=== PATIENT | female | born 1955 | race Caucasian/White ===

== ENCOUNTER 2020-10-11 17:02 | Inpatient (IN) | payer MEDICARE, SELFPAY ==
[2020-10-11] VITALS (10 sets, daily range): BP systolic 97–146; BP diastolic 64–91; PULSE 83–98; RESP 15–18; TEMP 36.6; O2SAT 95–100; BMI 40.6
--- NOTE | ~2020-10-11 | XR_ITS ---
EXAMINATION: XR chest 2V 10/11/2020 17:52 INDICATION: Chest pain, nausea and shortness of breath PROCEDURE: 2 view chest COMPARISON: No prior studies for comparison. FINDINGS: The lungs are clear. The cardiomediastinal silhouette is within normal limits. There are no pleural effusions. There is no pneumothorax suspected. IMPRESSION: 1: NO ACUTE CARDIOPULMONARY DISEASE. Reviewed, dictated and finalized at location A.
--- NOTE | 2020-10-11 17:04 | ECG_ITS ---
Measurements Intervals [place] Rate: 93 P: 21 ME: 166 QRS: 18 QRSD: 72 T: 131 QT: 353 QTc: 439 Interpretive Statements SINUS RHYTHM CANNOT RULE OUT SEPTAL INFARCT, AGE INDETERMINATE T WAVE ABNORMALITY IN HIGH LATERAL LEADS- CONSIDER ISCHEMIA BASELINE WANDER- II, III, AVR, AVL, AVF, V1, V6 ABNORMAL ECG Electronically Signed On 10-11-2020 19:01:11 CDT by Juan F Junior D.O.
[2020-10-11 17:52] LABS: Basophils Percent Auto 0.3 % (0.2-1.2); Eosinophils Absolute Auto 0.2 K/mm3 (0-0.3); Eosinophils Percent Auto 1.1 % (0-4.4); Hematocrit 44.8 % (37.0-47.0); Hemoglobin 14.7 g/dL (12.0-15.0); Immature Granulocyte Absolute 0.04 K/mm3 (0.00-0.031); Immature Granulocyte Percent A 0.3 % (0-0.5); Lymphocytes Percent Auto 20.6 % (18.3-44.2); Mean Corpuscular HGB Conc 32.8 g/dl (32-36); Mean Corpuscular Hemoglobin 30.4 pg (26-34); Mean Corpuscular Volume 92.6 fl (80-100); Mean Platelet Volume 9.3 fl (7.4-10.4); Monocytes Absolute Auto 1.3 K/mm3 (0.1-0.6); Monocytes Percent Auto 9.2 % (2.6-8.5); Neutrophils Absolute Auto 9.3 K/mm3 (1.3-6.7); Neutrophils Percent Auto 68.5 % (45.5-73.1); Platelet Count Result 305 k/mm3 (150-375); Red Blood Count 4.84 M/mm3 (4.2-5.4); Red Cell Distribution Width 13.6 % (11.5-14.5); White Blood Count 13.6 K/mm3 (4.5-10.0)
[2020-10-11 18:02] LABS: INR 0.9; Prothrombin Time 12.4 Seconds (11.1-14.7)
[2020-10-11 18:04] LABS: Anion Gap 8 mmol/L (8-16); Blood Urea Nitrogen 13 mg/dL (7-17); Calcium 9.8 mg/dL (8.4-10.2); Carbon Dioxide 29 mmol/L (22-30); Chloride 103 mmol/L (98-107); Estimated CRCL calculation 79 ml/min; Estimated Glomerular Filt Rate > 60; Glucose 114 mg/dL (65-105); Partial Thromboplastin Time 23.6 SECONDS (22.3-36.8); Potassium 4.2 mmol/L (3.4-5.0); Sodium 140 mmol/L (137-145)
[2020-10-11] MEDS: ASPIRIN 81 MG CHEWABLE TABLET 324 MG PO (18:59)
[2020-10-11] MEDS: HEPARIN SODIUM 5,000 UNITS/ML VIAL 4000 UNITS IV PUSH (20:02)
[2020-10-11] MEDS: HEPARIN SOD/D5W 100 UNITS/ML 25,000 UNITS/250 ML BAG 8 UNITS IV CONT (20:04)
[2020-10-11] MEDS: MORPHINE SULFATE (*CRX) 4 MG/ML INJ IV PUSH (20:05)
--- NOTE | 2020-10-11 20:20 | ED.CHESTPAIN ---
HPI - Chest Pain General Chief Complaint: Chest Pain Stated Complaint: chest pain since sunday Time Seen by Provider: 10/11/20 18:59 History of Present Illness HPI narrative: Patient is a 65-year-old female who presents ER with chest pain or shortness of breath. Patient reports 2 days ago she began having pain in the middle of her back that radiated up into her neck and down her arms. It was sudden onset in the evening. Its persisted through the weekend. Today she began having central chest pain that is 5/10. No radiation. She has extreme exertional fatigue and dyspnea beginning today. Cannot walk more than 20 feet. Denies fevers or chills or sweats. No previous heart disease. Reports her father of an MO in his 50s and her brother had an MO in his 30s. Related Data Home Medications Medication Instructions Recorded Confirmed No Home Medications 10/11/20 10/11/20 Allergies Allergy/AdvReac Type Severity Reaction Status Date / Time adhesive tape Allergy Rash Verified 10/11/20 18:54 Review of Systems Review of Systems: All systems reviewed & are unremarkable except as noted in HPI and below Constitutional: Constitutional: Denies chills, Denies fever(s) and Denies weakness Cardiovascular: Cardiovascular: Reports chest pain, Denies rapid heart rate and Reports radiating jaw, neck or arm pain Respiratory: Respiratory: Reports dyspnea Comments: Dyspnea on exertion Gastrointestinal: Gastrointestinal: Denies abdominal pain, Denies nausea and Denies vomiting Musculoskeletal: Musculoskeletal: Reports back pain, Denies arthralgias, Denies joint swelling and Denies muscle cramps PMFSH Past Medical History Medical History (Updated 10/12/20 @ 04:58 by Vinicio Trimble MD) Healthy female adult Surgical History Surgical History (Updated 10/12/20 @ 04:46 by Vinicio Trimble MD) No history of previous surgery Family History Family History (Updated 10/11/20 @ 22:42 by Brien Juarez RN) Father Acute myocardial infarction Sibling Acute myocardial infarction Social History Social History Smoking status: Never smoker Alcohol intake: never Substance use: never Gender identity (if verbalized by the patient): Female Spiritual care concerns: No Exam Narrative: Exam Narrative: GENERAL: Well-appearing, well-nourished, and in no acute distress. HEAD: Normocephalic, atraumatic. ENT: Mucous membranes moist. CHEST: Clear to auscultation. No respiratory distress. HEART: Regular rate and rhythm. Normal peripheral pulses. ABDOMEN: Soft, nontender, nondistended. EXTREMITIES: Normal range of motion. Normal strength. SKIN: Warm, dry, no rash. NEURO: Alert and oriented x3. PSYCH: Normal mood and affect. Course Reevaluation(s) Reevaluation #1: Accepted by Dr. Hess, would like nitro drip, pt already on heparin drip. Discussed with Dr. Lazo who has accepted to the ICU. NPO at midnight. Date: 10/11/20 Time: 20:22 Vital Signs Vital signs: Vital Signs Temperature 98 F 10/11/20 17:39 Pulse Rate 94 10/11/20 17:39 Respiratory Rate 16 10/11/20 17:39 Blood Pressure 129/83 10/11/20 17:39 Pulse Oximetry 96 10/11/20 17:39 Temperature 98.3 F 10/12/20 04:00 Pulse Rate 75 10/12/20 04:00 Respiratory Rate 17 10/12/20 04:00 Blood Pressure 103/73 10/12/20 04:00 Pulse Oximetry 97 10/12/20 04:00 MDM - Chest Pain Lab Data Result diagrams: 10/12/20 02:06 10/12/20 02:06 Labs: Lab Results 10/11/20 10/11/20 10/11/20 Range/Units 17:44 17:44 17:44 WBC 13.6 H (4.5-10.0) K/mm3 RBC 4.84 (4.2-5.4) M/mm3 Hgb 14.7 (12.0-15.0) g/dL Hct 44.8 (37.0-47.0) % MCV 92.6 (80-100) fl MCH 30.4 (26-34) pg MCHC 32.8 (32-36) g/dl RDW 13.6 (11.5-14.5) % Plt Count 305 (150-375) k/mm3 MPV 9.3 (7.4-10.4) fl Immature Gran % (Auto) 0.3 (0-0.5) % Neut % (Auto) 68.5 (45.5-73.1) % Lymph % (Auto) 20
[2020-10-11] MEDS: SODIUM CHLORIDE 0.9% IV 500 ML IV CONT (21:04)
--- NOTE | 2020-10-11 22:02 | ADMGEN ---
This patient, Kerri Espinosa, was admitted to Intensive Care Unit-8 on 10/11/20 at 2200. Patient/family oriented to hospital policies and general routines including ID bracelet, bed and alarms, visiting hours, pain management, procedures, bathroom and other care routines, personal items, smoking policy, room service/diet, and visiting hours. Information on how to activate the Rapid Response Team has been discussed. Patient/Family are encouraged to report perceived risks to care and to ask questions if they do not understand what they are told or what they should do.
[2020-10-11] MEDS: NITROGLYCERIN/D5W 200 MCG/ML 50 MG/250 ML BTL IV CONT (22:35)
--- NOTE | 2020-10-11 22:37 | PC.NURSE ---
Spoke with Dr. Hess. Does not want called with future troponins. Updated that nitro drip was started at 5mcg and chest pain is 1/10. Titrate for chest pain 2 or less. Continue to monitor.
[2020-10-12] VITALS (26 sets, daily range): BP systolic 88–120; BP diastolic 57–81; PULSE 68–108; RESP 14–20; TEMP 36.4–36.9; O2SAT 94–100
--- NOTE | 2020-10-12 | ECHO_ITS ---
Patient Info Name: Kerri Espinosa Age: 65 years : 1955 Gender: Female Ht: 60 in Wt: 208 lbs BSA: 2.05 m2 BP: 113 / 73 mmHg Heart Rhythm: Sinus Rhythm Technical Quality: Good Exam Date: 10/12/2020 1:30 PM Exam Location: [facility] Patient Status: Inpatient Admit Date: 10/11/2020 Staff Ordering Physician: Jorje Corbett MD Legal Aid: Juancarlos Mcdonald, VANE, RT Attending Provider: Edel Hess DO Exam Type: CA echo dop color flow w con Study Info Indications I50.9 - Heart failure, unspecified Complete two-dimensional, color flow and Doppler transthoracic echocardiogram is performed with contrast to opacify the left ventricle and to improve the deliniation of the left ventricle endocardial borders. Summary 1. Left ventricular systolic function is normal, estimated at 55-60%. 2. The anteroapical segment is akinetic. 3. Definity contrast shows no filling defect consistent with thrombus. 4. There is trace mitral valve regurgitation. Left Ventricle Left ventricular chamber dimension is normal. Left ventricular systolic function is normal, estimated at 55-60%. The left ventricular diastolic function is grade I diastolic dysfunction. The anteroapical segment is akinetic. Definity contrast shows no filling defect consistent with thrombus. Right Ventricle Right ventricular chamber dimension is normal. Left Atria Left atrial chamber dimension is normal. Right Atria Right atrial chamber dimension is normal. Aortic Valve The aortic valve is normal. Pulmonic Valve The pulmonic valve is not well visualized. Mitral Valve The mitral valve has normal leaflets. There is trace mitral valve regurgitation. Tricuspid Valve The tricuspid valve leaflets are normal. Pericardium/Pleural The pericardium appears normal. Aorta The aortic root size at the sinus of Valsalva is normal. Left Ventricular Outflow Tract Name Value Normal LVOT 2D LVOT Diameter 1.96 cm LVOT Doppler LVOT Peak Gradient 4 mmHg LVOT Mean Gradient 2 mmHg LVOT VTI 16.63 cm LVOT VTI/AV VTI Ratio 0.71 LVOT Stroke Volume 50.04 ml LVOT CO 4.17 l/min LVOT CI 2.03 L/min/m2 Mitral Valve Name Value Normal MV Doppler MV Decel Griggs 361.36 cm/s2 MV PHT 0 s MV Area (PHT) 2.99 cm2 4.00-5.00 MV Diastolic Function MV E Peak Velocity 91.81 cm/s MV A Peak Velocity 73.39 cm/s MV E/A 1.25 MV Decel Time
[2020-10-12 02:27] LABS: Basophils Percent Auto 0.3 % (0.2-1.2); Eosinophils Percent Auto 0.1 % (0-4.4); Hemoglobin 12.4 g/dL (12.0-15.0); Immature Granulocyte Absolute 0.06 K/mm3 (0.00-0.031); Immature Granulocyte Percent A 0.4 % (0-0.5); Lymphocytes Absolute Auto 2.99 K/mm3 (0.9-3.2); Lymphocytes Percent Auto 20.8 % (18.3-44.2); Mean Corpuscular HGB Conc 31.8 g/dl (32-36); Mean Corpuscular Hemoglobin 30.2 pg (26-34); Mean Corpuscular Volume 94.9 fl (80-100); Mean Platelet Volume 9.8 fl (7.4-10.4); Monocytes Absolute Auto 1.3 K/mm3 (0.1-0.6); Monocytes Percent Auto 8.9 % (2.6-8.5); Neutrophils Percent Auto 69.5 % (45.5-73.1); Platelet Count Result 223 k/mm3 (150-375); Red Blood Count 4.11 M/mm3 (4.2-5.4); Red Cell Distribution Width 13.7 % (11.5-14.5); White Blood Count 14.4 K/mm3 (4.5-10.0)
[2020-10-12 02:36] LABS: Anion Gap 8 mmol/L (8-16); Blood Urea Nitrogen 13 mg/dL (7-17); Calcium 9.1 mg/dL (8.4-10.2); Carbon Dioxide 25 mmol/L (22-30); Chloride 106 mmol/L (98-107); Estimated CRCL calculation 79 ml/min; Estimated Glomerular Filt Rate > 60; Glucose 137 mg/dL (65-105); Potassium 4.1 mmol/L (3.4-5.0); Sodium 139 mmol/L (137-145)
[2020-10-12 02:43] LABS: Partial Thromboplastin Time 46.1 SECONDS (22.3-36.8)
[2020-10-12] MEDS: HEPARIN SODIUM 5,000 UNITS/ML VIAL 4000 UNITS IV PUSH (02:54)
--- NOTE | 2020-10-12 08:22 | PM.IMHP ---
H&P: HPI History of Present Illness Date/Time: 10/12/20 08:22 DATE OF SERVICE: 10/12/2020 CHIEF COMPLAINT: chest pain for about 3 days HPI: 65-year-old female with no known prior cardiac history; history of questionable TIA/CVA. Patient states that she was in her usual state of health until about 3 days ago when she started having discomfort between her shoulder blades, which later moved to anterior chest in the substernal area with radiation to left inframammary area. She describes her pain as sharp sensation in the substernal area, which has been constant in last few days associated with shortness of breath, diaphoresis, dizziness. She denies any palpitations, syncope. Patient was brought to the hospital by her daughter. EKG on admission which I personally evaluated showed sinus rhythm, septal infarct age undetermined, ST-T abnormalities in the lateral leads suggestive of ischemia. Troponins are elevated, trending upwards, current peak troponin level 11.1. No acute findings on chest x-ray. Patient was initiated on IV nitroglycerin due to persistent chest discomfort, which has improved her symptoms. She was also initiated on unfractionated heparin in the ER. Patient gives vague history of TIA/CVA about 10 years ago, but does not recall the details and workup. She has not had any major motor deficits. Chief Complaint: Chest pain Review of Systems Review of Systems: Narrative: General: Negative for fever, chills, fatigue Psychological: Negative for anxiety, depression Ophthalmic: negative for loss of vision ENT: Negative for epistaxis, headaches Allergy and immunology: Negative for hives, nasal congestion Hematologic and lymphatic: Negative for overt bleeding problems Endocrine: Negative for hot flashes, palpitations Respiratory: Negative for cough, hemoptysis Cardiovascular: Positive for chest pain, shortness of breath, dizziness Gastrointestinal: Negative for abdominal pain, nausea, vomiting, hematochezia Musculoskeletal: Negative for myalgia, joint pains Neurological: Negative for weakness Dermatological: Negative for rash, skin discoloration PMFSH Past Medical History Medical History (Updated 10/12/20 @ 08:47 by Jorje Corbett MD) TIA (transient ischemic attack) Surgical History Surgical History (Updated 10/12/20 @ 08:47 by Jorje Corbett MD) H/O rotator cuff surgery Family History Family History (Updated 05/31/21 @ 22:42 by Brien Juarez RN) Father Acute myocardial infarction Sibling Acute myocardial infarction Social History Social History Smoking status: Never smoker Alcohol intake: never Substance use: never Gender identity (if verbalized by the patient): Female Spiritual care concerns: No Meds Home Medications and Allergies Home Medications Medication Instructions Recorded Confirmed Type No Home Medications 10/11/20 10/11/20 History Allergies Allergy/AdvReac Type Severity Reaction Status Date / Time adhesive tape Allergy Rash Verified 10/11/20 18:54 Vital Signs Vital Signs - 24 hr 10/11/20 17:39 10/11/20 18:53 10/11/20 20:09 Temperature 36.6 C Pulse Rate 94 96 98 Respiratory Rate 16 18 18 Blood Pressure 129/83 146/75 H 114/77 Pulse Oximetry 96 99 99 10/11/20 21:04 10/11/20 21:27 10/11/20 22:30 Temperature Pulse Rate 83 83 89 Respiratory Rate 18 16 16 Blood Pressure 97/65 L 102/70 121/91 H Pulse Oximetry 95 100 96 10/11/20 22:35 10/11/20 22:51 10/11/20 23:00 Temperature Pulse Rate 91 83 86 Respiratory Rate 16 15 Blood Pressure 100/64 Pulse Oximetry 96 96 10/11/20 23:16 10/12/20 00:00 10/12/20 02:00 Temperature 36.9 C Pulse Rate 90 80 81 Respiratory Rate 16 15 16 Blood Pressure 97/67 L 95/77 L Pulse Oximetry 96 94 96 10/12/20 02:10 10/12/20 03:48 10/12/20 04:00 Temperature 36.8 C Pulse Rate 81 75 Respiratory Rate 16 17 Blood Pressure
--- NOTE | 2020-10-12 08:25 | WPDMODSED ---
Moderate Sedation Note-Pt Data Patient Data Allergies Allergy/AdvReac Type Severity Reaction Status Date / Time adhesive tape Allergy Rash Verified 10/11/20 18:54 Home Medications Medication Instructions Recorded Confirmed Type No Home Medications 10/11/20 10/11/20 History Current Medications: Active Medications Hydrocodone Bitart/Acetaminophen (Hydrocodone/Acetaminophen (*Crx) 5-325 Mg Tablet) 1 tab PO Q4H PRN PRN Reason: Pain Rated 4-6 Heparin Sodium (Porcine) (Heparin Sodium 5,000 Units/Ml Vial) 4,000 units IV PUSH PRN PRN PRN Reason: aPTT less than 55 seconds Last Admin: 10/12/20 02:54 Dose: 4,000 units Documented by: Heparin Sodium (Porcine) (Heparin Sodium 5,000 Units/Ml Vial) 2,500 units IV PUSH PRN PRN PRN Reason: aPTT 55 - 70 seconds Heparin Sodium/Dextrose (Heparin Sodium/D5w 100 Units/Ml) 25,000 units in 250 mls @ 11 mls/hr IV CONT .[id number] [facility]; Protocol Last Titration: 10/12/20 02:55 Dose: 1,100 units/hr, 11 mls/hr Documented by: Acetaminophen (Ofirmev 1,000 Mg Ivpb) 1,000 mg in 100 mls @ 400 mls/hr IVPB Q6H PRN PRN Reason: Mild Pain (1-3) or Fever Stop: 10/12/20 20:15 Nitroglycerin/Dextrose (Nitroglycerin In 5% Dextrose 50 Mg) 50 mg in 250 mls @ 1.5 mls/hr IV CONT .Q24H [facility]; Protocol Last Admin: 10/11/20 22:35 Dose: 5 mcg/min, 1.5 mls/hr Documented by: Morphine Sulfate (Morphine Sulfate (*Crx) 4 Mg/Ml Inj) 4 mg IV PUSH Q2H PRN PRN Reason: Pain Rated 7-10 Ondansetron HCl (Ondansetron Inj 4 Mg/2 Ml Vial) 4 mg IV PUSH Q4H PRN PRN Reason: Nausea Sedation/Anesthesia: No previous sedation/anesthesia problems (including family history). PMFSH Past Medical History Medical History (Updated 10/12/20 @ 04:58 by Vinicio Trimble MD) Healthy female adult Surgical History Surgical History (Updated 10/12/20 @ 04:46 by Vinicio Trimble MD) No history of previous surgery Family History Family History (Updated 10/11/20 @ 22:42 by Brien Juarez RN) Father Acute myocardial infarction Sibling Acute myocardial infarction Social History Social History Smoking status: Never smoker Alcohol intake: never Substance use: never Gender identity (if verbalized by the patient): Female Spiritual care concerns: No Mod Sed Physical Exam Physical Exam Pre Procedural Exam: Normal: Airway Hours since solid foods: 8 Hours since liquid intake: 8 Internal Medicine - PN: Obj Da Vital Signs Vital Signs: Vital Signs - 24 hr 10/11/20 17:39 10/11/20 18:53 10/11/20 20:09 Temperature 36.6 C Pulse Rate 94 96 98 Respiratory Rate 16 18 18 Blood Pressure 129/83 146/75 H 114/77 Pulse Oximetry 96 99 99 10/11/20 21:04 10/11/20 21:27 10/11/20 22:30 Temperature Pulse Rate 83 83 89 Respiratory Rate 18 16 16 Blood Pressure 97/65 L 102/70 121/91 H Pulse Oximetry 95 100 96 10/11/20 22:35 10/11/20 22:51 10/11/20 23:00 Temperature Pulse Rate 91 83 86 Respiratory Rate 16 15 Blood Pressure 100/64 Pulse Oximetry 96 96 10/11/20 23:16 10/12/20 00:00 10/12/20 02:00 Temperature 36.9 C Pulse Rate 90 80 81 Respiratory Rate 16 15 16 Blood Pressure 97/67 L 95/77 L Pulse Oximetry 96 94 96 10/12/20 02:10 10/12/20 03:48 10/12/20 04:00 Temperature 36.8 C Pulse Rate 81 75 Respiratory Rate 16 17 Blood Pressure 103/73 Pulse Oximetry 97 97 97 10/12/20 06:00 Temperature Pulse Rate 81 Respiratory Rate 14 Blood Pressure 105/81 Pulse Oximetry 97 Intake/Output Intake/Output: Intake & Output 10/09/20 10/10/20 10/11/20 10/12/20 23:59 23:59 23:59 23:59 Intake Total 500 0 Output Total 300 Balance 500 -300 Meds/Results Medications: Active Medications Generic Name Dose Route Start Last Admin Trade Name Freq PRN Reason Stop Dose Admin Hydrocodone Bitart/Acetaminophen 1 tab 10/11/20 20:14 Hydrocodone/Acetaminophen (*Crx) 5-325 Mg Tablet PO Q4H PRN Pain Rat
--- NOTE | 2020-10-12 10:06 | WPDCARDPROC ---
Cardiac Cath Procedure Note Date of procedure:: 10/12/20 Performing physician:: Jorje Corbett MD Procedure Procedure note:: CARDIAC CATHETERIZATION AND PERCUTANEOUS CORONARY INTERVENTION REPORT DATE OF PROCEDURE: 10/12/2020 INDICATION FOR PROCEDURE: Acute coronary syndrome - non ST elevation myocardial infarction BRIEF CLINICAL HISTORY: 65-year-old female with no known prior cardiac history presented to the hospital with about 3 day history of chest discomfort associated with shortness of breath, diaphoresis. Her EKG showed sinus rhythm, septal infarct age undetermined, ST-T abnormalities in the lateral leads suggestive of ischemia. Troponins are elevated which are trending upwards, consistent with non ST elevation myocardial infarction. Patient had ongoing chest discomfort and, was on IV nitroglycerin. After discussing benefits, risks and alternatives, patient was willing to proceed with coronary angiogram with intention for PCI as necessary. Benefits and risks of the procedure were discussed with the patient in depth, and informed consent was obtained prior to the procedure. Risks of the procedure include but are not limited to vascular complications including groin hematoma, retroperitoneal bleed, vessel perforation; periprocedural MA, cardiac arrhythmias, stroke, contrast induced nephropathy, and . After discussing all the benefits, risks and alternatives, patient was willing to proceed with the procedure. PROCEDURES PERFORMED: 1. Left heart catheterization- Selective left and right coronary angiogram; left ventriculogram and hemodynamic assessment 2. Percutaneous coronary intervention- balloon angioplasty and stenting of totally occluded proximal LAD ( with adjunctive aspiration thrombectomy due to heavy thrombus burden) using the 3.5 x 22 mm orsiro sirolimus eluting stent with evangelical of JOSE ALBERTO 3 flow. 3. Selective right common femoral angiogram and deployment of Angio-Seal hemostatic device 4. Moderate sedation-CPT code 25424 MODERATE SEDATION: Midazolam 1 mg; fentanyl 25 mcg. Start time 0909 , Stop time 1001 ; Total [id number] time 52 minutes; Tamela Watts RN was trained observer for moderate sedation. ACCESS SITE: Right common femoral artery PROCEDURE NOTE: After obtaining informed consent, patient was brought to catheterization lab and prepped and draped in a usual sterile manner. After local anesthesia with lidocaine, right common femoral artery access was taken with micropuncture needle followed by insertion of a 6 Romanian sheath. Selective left and right coronary angiogram was performed using 5 Romanian JL4 and JR4 catheters respectively. Orthogonal views were taken. Next, a 5 Romanian pigtail catheter was advanced in the LV cavity and was flushed with normal saline. LV pressure measurement was performed. After this, left ventriculogram was performed. The catheter was flushed again, and gradient across the aortic valve was measured on the pullback of the catheter . After PCI, Selective right common femoral angiogram was performed after PCI followed by successful deployment of Angio-Seal vascular closure device. Patient tolerated procedure well without any immediate procedure related complications. FINDINGS: LEFT MAIN CORONARY: a medium caliber vessel, minimal narrowing at the ostium without any significant catheter dampening. The vessel trifurcates into LAD, ramus intermedius and circumflex branches. LEFT ANTERIOR DESCENDING ARTERY: the LAD is a medium caliber vessel and is totally occluded in the proximal segment -infarct-related vessel. JOSE ALBERTO 0 flow was seen before PCI. After intervention, vessel tapers distally and becomes smaller caliber vessel near LV apex. About 20% eccentric plaque is seen in the mid segment. Mid diagonal branch is a medium caliber vessel. After PCI, thrombus was seen in the distal most part of the diagonal branch. RAMUS INTERMEDIUS: Small caliber vessel, no significant focal steno
[2020-10-12] MEDS: SODIUM CHLORIDE 0.9% IV 1,000 ML 125 ML IV CONT (11:16)
--- NOTE | 2020-10-12 12:10 | WPDCNINT ---
Assessment and Plan Assessment and plan (1) Non-ST elevation WI (NSTEMI): Code(s): I21.4 - Non-ST elevation (NSTEMI) myocardial infarction Status: Acute Assessment and Plan: Patient presented with chest pain with elevated troponin but EKG did not showed ST elevation. Patient was started on nitroglycerin and heparin infusion along with aspirin Lipitor metoprolol and lisinopril Patient was taken to finishing lab technician this morning she underwent balloon angioplasty and stenting of LAD Now admitted back to ICU and continue ICU monitoring Brilinta added Check echocardiogram IV fluids for renal protection Microbiology Manager Consult Note Consult date: 10/12/20 Time Seen: 08:30 HPI: Kerri Espinosa is a 65 year old female presented yesterday with chief complaint of discomfort between her shoulder blades, which later moved to anterior chest in the substernal area with radiation to left inframammary area. She describes her pain as sharp sensation in the substernal area, which has been constant in last few days associated with shortness of breath, diaphoresis, dizziness. She denied any palpitations, syncope. In ED patient was found to be having non ST segment elevation WI. Patient was started on heparin and nitroglycerin infusion and admitted to ICU. Cardiology was consulted This morning when I saw the patient she states her chest pain was better but still present. Pain was 2/10 severe sharp with no radiation. Pain between her shoulder blades had resolved. Symptoms were associated with mild shortness of breath. Chest pain was was worse with deep breathing and coughing. Denied any dizziness or lightheaded. No nausea vomiting Review system was also positive for chronic back pain. Denied any other complaints. All other systems were reviewed and were negative Review of Systems Review of Systems: All systems reviewed & are unremarkable except as noted in HPI and below (HPI) [facility] Past Medical History Medical History TIA (transient ischemic attack) Surgical History Surgical History H/O rotator cuff surgery Family History Family History Father Acute myocardial infarction Sibling Acute myocardial infarction Social History Social History Smoking status: Never smoker Alcohol intake: never Substance use: never Gender identity (if verbalized by the patient): Female Spiritual care concerns: No Meds Home Medications and Allergies Home Medications Medication Instructions Recorded Confirmed Type No Home Medications 10/11/20 10/11/20 History Allergies Allergy/AdvReac Type Severity Reaction Status Date / Time adhesive tape Allergy Rash Verified 10/11/20 18:54 Vital Signs Vital Signs - 24 hr 10/11/20 17:39 10/11/20 18:53 10/11/20 20:09 Temperature 36.6 C Pulse Rate 94 96 98 Respiratory Rate 16 18 18 Blood Pressure 129/83 146/75 H 114/77 Pulse Oximetry 96 99 99 10/11/20 21:04 10/11/20 21:27 10/11/20 22:30 Temperature Pulse Rate 83 83 89 Respiratory Rate 18 16 16 Blood Pressure 97/65 L 102/70 121/91 H Pulse Oximetry 95 100 96 10/11/20 22:35 10/11/20 22:51 10/11/20 23:00 Temperature Pulse Rate 91 83 86 Respiratory Rate 16 15 Blood Pressure 100/64 Pulse Oximetry 96 96 10/11/20 23:16 10/12/20 00:00 10/12/20 02:00 Temperature 36.9 C Pulse Rate 90 80 81 Respiratory Rate 16 15 16 Blood Pressure 97/67 L 95/77 L Pulse Oximetry 96 94 96 10/12/20 02:10 10/12/20 03:48 10/12/20 04:00 Temperature 36.8 C Pulse Rate 81 75 Respiratory Rate 16 17 Blood Pressure 103/73 Pulse Oximetry 97 97 97 10/12/20 06:00 10/12/20 08:00 10/12/20 10:30 Temperature 36.6 C 36.4 C Pulse Rate 81 71 76 Respiratory Rate 14 18 20 Blood Pressure 105/81 109/70 103/66 Pulse Oxime
--- NOTE | 2020-10-12 12:20 | PC.NURSE ---
Angiomax infusion completed at 1215 on 10/12/2020. Angiomax and Nitroglycerin infusions stopped per Dr. Corbett's instructions.
[2020-10-12] MEDS: ACETAMINOPHEN 500 MG TABLET 1000 MG PO (17:28)
[2020-10-12] MEDS: METOPROLOL TARTRATE 6.25 MG TABLET PO (20:02)
[2020-10-12] MEDS: TICAGRELOR 90 MG TABLET PO (20:02)
[2020-10-12] MEDS: HYDROcodone/acetaminophen (*CRX) 5-325 MG TABLET 1 TAB PO (22:24)
[2020-10-13] VITALS (11 sets, daily range): BP systolic 85–116; BP diastolic 60–77; PULSE 65–97; RESP 13–18; TEMP 36.5–36.6; O2SAT 96–99
[2020-10-13 04:29] LABS: Hematocrit 38.7 % (37.0-47.0); Hemoglobin 12.2 g/dL (12.0-15.0); Mean Corpuscular HGB Conc 31.5 g/dl (32-36); Mean Corpuscular Volume 95.1 fl (80-100); Mean Platelet Volume 9.3 fl (7.4-10.4); Platelet Count Result 245 k/mm3 (150-375); Red Blood Count 4.07 M/mm3 (4.2-5.4); White Blood Count 10.6 K/mm3 (4.5-10.0)
[2020-10-13 04:39] LABS: Alanine Aminotransferase 33 U/L (4-35); Albumin Level 3.4 g/dL (3.5-5.1); Alkaline Phosphatase 74 U/L (38-126); Anion Gap 7 mmol/L (8-16); Aspartate Amino Transferase 104 U/L (14-36); Bilirubin,Total 0.6 mg/dL (0.2-1.3); Blood Urea Nitrogen 11 mg/dL (7-17); Calcium 9.1 mg/dL (8.4-10.2); Carbon Dioxide 28 mmol/L (22-30); Chloride 107 mmol/L (98-107); Estimated CRCL calculation 69 ml/min; Estimated Glomerular Filt Rate > 60; Glucose 105 mg/dL (65-105); Magnesium 2.1 mg/dL (1.6-2.3); Potassium 4.3 mmol/L (3.4-5.0); Sodium 142 mmol/L (137-145)
[2020-10-13] MEDS: METOPROLOL TARTRATE 6.25 MG TABLET PO (09:06)
[2020-10-13] MEDS: TICAGRELOR 90 MG TABLET PO (09:06)
[2020-10-13] MEDS: PANTOPRAZOLE 40 MG TABLET PO (09:06)
[2020-10-13] MEDS: lisinopriL 2.5 MG TABLET PO (09:06)
[2020-10-13] MEDS: ENOXAPARIN 40 MG/0.4 ML SYRINGE SUB-Q (09:07)
[2020-10-13] MEDS: ATORVASTATIN 40 MG TABLET 80 MG PO (09:07)
[2020-10-13] MEDS: ASPIRIN 81 MG ENTERIC TABLET PO (09:07)
[2020-10-13] MEDS: MAG HYDROX/AL HYDROX/SIMETH 30 ML UDC PO (09:08)
--- NOTE | 2020-10-13 09:22 | WPDINTPN ---
Progress Note: A&P Assessment and Plan (1) Non-ST elevation [place] (NSTEMI): Code(s): I21.4 - Non-ST elevation (NSTEMI) myocardial infarction Status: Acute Assessment and Plan: Patient presented with chest pain with elevated troponin but EKG did not showed ST elevation. Patient was started on nitroglycerin and heparin infusion along with aspirin Lipitor metoprolol and lisinopril Patient was taken to lab tester yesterday and she underwent balloon angioplasty and stenting of LAD Doing well overnight Continue Brilinta aspirin, statin, beta-genoveva, Hadley inhibitor Reviewed echocardiogram (2) Epigastric abdominal pain: Code(s): R10.13 - Epigastric pain Status: Acute Assessment and Plan: This could be pericardial pain from TX versus gastritis. Will also check lipase Add PPI and p.r.n. Mylanta Lovenox subcu for DVT prophylaxis, transfer out of ICU, increase activity Subjective Date/time seen: 10/13/20 patient states she overall feels better but continues to have mild discomfort in her epigastric area. She described it 1 to 2/10 severe, Achy in quality, no radiation, worse with deep breathing and coughing, she feels she cannot take a deep breath. She is saturating well on room air Patient denies fever, in between shoulder blade pain that she presented with, cough, nausea vomiting, abdominal pain,, diarrhea, headache or constipation. All other systems were reviewed and were negative Review of Systems Review of Systems: All systems reviewed & are unremarkable except as noted in HPI and below (HPI) Exam Narrative: Exam Narrative: General: Pt is alert awake and in NAD Lungs/Chest: Trachea central Clear BS B/L, No crackles or wheezing. Cardiac: RRR. Normal S1 S2. No murmurs Circulation: Pedal pulses are intact and symmetrical. Abdomen: Obese Normal bowel sounds.. Soft. NT. ND. Mild tenderness in epigastric area Extremities: No clubbing, cyanosis or edema. Warm : Liao in place Neurologic: Follows commands. Moves all 4 extremities PERRL Skin: No Rash Objective Data Vital Signs Vital Signs: Vital Signs - 24 hr 10/12/20 10:30 10/12/20 10:45 10/12/20 11:00 Temperature 36.4 C Pulse Rate 76 74 71 Pulse Rate [Left Pedal (Dorsalis Pedis) Palpation] Pulse Rate [Right Pedal (Dorsalis Pedis) Palpation] Respiratory Rate 20 18 18 Blood Pressure 103/66 88/66 L 93/65 L Pulse Oximetry 99 97 97 10/12/20 11:15 10/12/20 11:30 10/12/20 12:00 Temperature 36.4 C 36.6 C Pulse Rate 70 68 71 Pulse Rate [Left Pedal (Dorsalis Pedis) Palpation] Pulse Rate [Right Pedal (Dorsalis Pedis) Palpation] Respiratory Rate 18 16 18 Blood Pressure 93/67 L 92/57 L 103/65 Pulse Oximetry 97 99 100 10/12/20 12:30 10/12/20 13:00 10/12/20 14:00 Temperature Pulse Rate 76 76 91 Pulse Rate [Left Pedal (Dorsalis Pedis) Palpation] Pulse Rate [Right Pedal (Dorsalis Pedis) Palpation] Respiratory Rate 16 16 16 Blood Pressure 116/72 113/73 89/61 L Pulse Oximetry 100 100 100 10/12/20 15:00 10/12/20 16:00 10/12/20 17:00 Temperature Pulse Rate 86 87 107 H Pulse Rate [Left Pedal (Dorsalis Pedis) Palpation] Pulse Rate [Right Pedal (Dorsalis Pedis) Palpation] Respiratory Rate 16 18 18 Blood Pressure 92/62 L 103/69 100/65 Pulse Oximetry 98 98 96 10/12/20 18:00 10/12/20 19:36 10/12/20 19:38 Temperature Pulse Rate 87 87 79 Pulse Rate [Left Pedal (Dorsalis Pedis) Palpation] 80 Pulse Rate [Right Pedal (Dorsalis Pedis) Palpation] 80 Respiratory Rate 18 18 19 Blood Pressure 102/69 Pulse Oximetry 97 97 95 10/12/20 20:00 10/12/20 20:02 10/12/20 22:00 Temperature 36.4 C Pulse Rate 108 H 85 78 Pulse Rate [Left Pedal (Dorsalis Pedis) Palpation] Pulse Rate [Right Pedal (Dorsalis Pedis) Palpation] Respiratory Rate 17 18 Blood Pressure 120/77 102/73 Pulse Oximetry 97 97 10/12/20 23:33 10/13/20 00:00 10/13/20 02:00 Temperature 36.6 C Pulse Rate 69 65 75 Pulse Rat
[2020-10-13 09:37] LABS: Lipase 36 U/L (23-300)
--- NOTE | 2020-10-13 09:55 | PC.NURSE ---
Cardiop[facility] Rehab Services flyer was given to patient in their cardiac admission folder as well as medication cards for current medications after heart cath.
--- NOTE | 2020-10-13 09:57 | PM.PNCARD ---
Progress Note: A&P Assessment and Plan (1) Non-ST elevation [place] (NSTEMI): Code(s): I21.4 - Non-ST elevation (NSTEMI) myocardial infarction Status: Acute Assessment and Plan: 65-year-old female with no known prior cardiac history presented to the hospital with about 3 day history of chest discomfort associated with shortness of breath, diaphoresis. Her EKG showed sinus rhythm, septal infarct age undetermined, ST-T abnormalities in the lateral leads suggestive of ischemia. Troponins are elevated which are trending upwards, consistent with non ST elevation myocardial infarction. -On 10/12/2020 she underwent a heart catheterization that revealed a 100% LAD occlusion. She underwent balloon angioplasty and a 3.5 x 22 mm sirolimus eluting stent was deployed in gnosticist of flow was achieved. No other significant CAD was observed. She experience relief of chest pain following the procedure. She does have very mild chest pain today that she rates a 1 or 2/10. She thinks it is probably indigestion. She has been given Maalox and Prilosec to help with this discomfort. We will continue to monitor for any further chest pain. She can be downgraded from ICU status today. Likely discharge tomorrow. -she has been placed on appropriate medical therapy including aspirin, atorvastatin, lisinopril, metoprolol, Brilinta. Subjective Date/time seen: 10/13/20 09:57 cardiology follow-up for NSTEMI, status post PCI. Date of service 10/13/2020: Patient doing well today status post PCI to the LAD yesterday. She states she is having a mild amount of discomfort in her chest this morning. She rates the pain at a 1-2 of 10 and describes the pain as a tightness and burning. She states that she thinks this might be indigestion. Maalox and Prilosec have been ordered. She denies any other complaints at this time. She has been out of bed this morning did not have any difficulty without. She does state that she had some mild shortness of breath but denies any chest pain, palpitations, syncope, presyncope. She states that she is not quite ready to go home yet today. We will monitor her for 1 more day and likely discharge tomorrow. Review of Systems Review of Systems: All systems reviewed & are unremarkable except as noted in HPI and below Cardiovascular: Cardiovascular: Reports chest pain, Denies pedal edema, Denies leg edema, Denies lightheadedness and Denies palpitations Respiratory: Respiratory: Denies cough, Denies dyspnea and Reports dyspnea on exertion Gastrointestinal: Gastrointestinal: Reports heartburn Endocrine: Endocrine: Denies palpitations Exam Narrative: Exam Narrative: Obese woman. Alert and oriented x3. Pleasant and cooperative. Const: General: comfortable and no acute distress HENMT: Head: normocephalic and atraumatic Eyes: General: appearance normal, both eyes and all related structures Pupils: Equal, round and reactive pupils present Neck: Neck: supple Resp: Effort & Inspection: normal respiratory effort Auscultation: clear to auscultation bilaterally Cardio: Rate: regular rate Rhythm: regular rhythm Heart sounds: no gallops and no murmurs GI: GI Palp: Yes Soft to palpation Auscultation: normal bowel sounds Skin: General skin exam: normal color Wounds: wounds noted (R groin catheter insertion site. Site free from pain, hematoma, bleeding.) Neuro: Cognition (Neuro): normal cognition Speech: normal speech Motor exam (neuro): 5/5 motor strength present throughout Extrem: General: normal to inspection Psych: Mental Status: mental status grossly normal Affect: normal affect Objective Data Vital Signs Vital Signs: Vital Signs - 24 hr 10/12/20 10:30 10/12/20 10:45 10/12/20 11:00 Temperature 36.4 C Pulse Rate 76 74 71 Pulse Rate [Left Pedal (Dorsalis Pedis) Palpation] Pulse Rate [Right Pedal (Dorsalis Pedis) Palpation] Respiratory Rate 20 18 18 Blood Pressure 103/66 88/66 L 9
--- NOTE | 2020-10-13 13:48 | PM.DS ---
DS: Admitting Diagnosis Admitting Diagnosis Admitting Diagnosis: Chest pain DS: Discharge Diagnosis Discharge Diagnosis (1) Non-ST elevation [place] (NSTEMI): Code(s): I21.4 - Non-ST elevation (NSTEMI) myocardial infarction Status: Acute Assessment and Plan: 65-year-old female with no known prior cardiac history presented to the hospital with about 3 day history of chest discomfort associated with shortness of breath, diaphoresis. Her EKG showed sinus rhythm, septal infarct age undetermined, ST-T abnormalities in the lateral leads suggestive of ischemia. Troponins are elevated which are trending upwards, consistent with non ST elevation myocardial infarction. -On 10/12/2020 she underwent a heart catheterization that revealed a 100% LAD occlusion. She underwent balloon angioplasty and a 3.5 x 22 mm sirolimus eluting stent was deployed in moravian of flow was achieved. No other significant CAD was observed. She experience relief of chest pain following the procedure. She does have very mild chest pain today that she rates a 1 or 2/10. She thinks it is probably indigestion. She has been given Maalox and Prilosec to help with this discomfort. We will continue to monitor for any further chest pain. She can be downgraded from ICU status today. Likely discharge tomorrow. -she has been placed on appropriate medical therapy including aspirin, atorvastatin, lisinopril, metoprolol, Brilinta. DS: Summary Hospital Course Reason for hospitalization: Chest pain Hospital Course: 10/11/20 Patient presented to the hospital with a 3 day complaint of chest pain. In the hospital she was found to have elevated troponins that trended up to a peak of 11.1. EKG on admission showed sinus rhythm, septal infarct age undetermined, ST-T abnormalities in the lateral leads suggestive of ischemia. 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 On 10/12/20 she underwent left heart catheterization and was found to have 100% thrombotic occlusion to the proximal LAD. No other significant coronary disease noted during this procedure. A 3.5 x 22mm sirolimus eluting stent was deployed with subsequent moravian of flow. 10/13/20: Patient is feeling well post-PCI and had no complications overnight. Patient was reporting some mild chest discomfort that she was associating with GERD, and after receiving protonix and mylanta she feels better and would like to be discharged home. She has been placed on appropriate medical therapy including Aspirin, atorvastatin, lisinopril, metoprolol, and Brilinta. She will follow up with our office in 2 weeks. Status at Discharge Functional status at discharge: independent ambulation Overall status at discharge: patient is back to baseline Time Spent with Patient Time attestation: Total time spent providing and/or coordinating discharge services: 40 minutes Exam Narrative: Exam Narrative: Obese woman. Alert and oriented x3. Pleasant and cooperative. Const: General: comfortable and no acute distress HENMT: Head: normocephalic and atraumatic Eyes: General: appearance normal, both eyes and all related structures Pupils: Equal, round and reactive pupils present Neck: Neck: supple Resp: Effort & Inspection: normal respiratory effort Auscultation: clear to auscultation bilaterally Cardio: Rate: regular rate Rhythm: regular rhythm Heart sounds: no gallops and no murmurs GI: Auscultation: normal bowel sounds Skin: General skin exam: normal color Wounds: wounds noted (R groin catheter insertion site. Site free from pain, hematoma, bleeding.) Neuro: Cranial nerves: Yes Equal, round and reactive pupils present Cognition (Neuro): normal cognition Speech: normal speech Motor exam (neuro): 5/5 motor strength present throughout Extrem: General: normal to inspection Psych: Mental Status: mental s
== END 2020-10-13 15:00 | disposition home or self-care (01) | DRG 247 ==
LOC: ANHED 18:59 → ANHICU 20:43
PROVIDERS: Emergency Medicine; Internal Medicine; Internal Medicine Cardiovascular Disease; Admitting Provider Internal Medicine Cardiovascular Disease; Emergency Provider Emergency Medicine; PCP Internal Medicine; Visit Provider Nurse Practitioner
PROC: 4A023N7 Measurement of Cardiac Sampling and Pressure, Left Heart, Percutaneous Approach (ICD-10-PCS; CPT 93452; principal; 2020-10-12 08:30)
PROC: 027034Z Dilation of Coronary Artery, One Artery with Drug-eluting Intraluminal Device, Percutaneous Approach (ICD-10-PCS; CPT 92973; 2020-10-12 08:30)
PROC: 027034Z Dilation of Coronary Artery, One Artery with Drug-eluting Intraluminal Device, Percutaneous Approach (ICD-10-PCS; 2020-10-12 08:30)
PROC: 027034Z Dilation of Coronary Artery, One Artery with Drug-eluting Intraluminal Device, Percutaneous Approach (ICD-10-PCS; 2020-10-12 08:30)
DX: I21.4 Non-ST elevation (NSTEMI) myocardial infarction (principal); I25.10 Atherosclerotic heart disease of native coronary artery without angina pectoris; R10.13 Epigastric pain; M54.9 Dorsalgia, unspecified; G89.29 Other chronic pain; Z86.73 Personal history of transient ischemic attack (TIA), and cerebral infarction without residual deficits; Z82.49 Family history of ischemic heart disease and other diseases of the circulatory system
CPT/HCPCS: 36415; 71046; 80048; 80053; 83690; 83735; 84484; 85025; 85027; 85610; 85730; 92973; 93005; 93458; 96365; 96366; 96368; 96375; 99285; A9270; C1725; C1757; C1760; C1769; C1874; C1887; C1894; C8929; C9600; G0269; G0378; J0583; J1644; J1650; J2250; J2270; J3010; J7030; J7040; Q9957

== ENCOUNTER → 2021-04-05 11:58 | Outpatient (CLI) | payer MEDICARE, SELFPAY ==
--- NOTE | ~2021-04-05 | MM_ITS ---
EXAMINATION: MM screening patricia BI w briseyda HISTORY: Screening mammogram TECHNIQUE: Craniocaudal and mediolateral oblique 3-D tomosynthesis images were obtained and synthetic 2-D images were generated. CAD analysis was submitted and interpreted. COMPARISON: No prior mammogram is available for comparison at this institution. BREAST PARENCHYMAL COMPOSITION: The breasts are almost entirely fatty. FINDINGS: There is no evidence of suspicious mass, calcification, or architectural distortion to sugg est malignancy in either breast. IMPRESSION: 1. No mammographic evidence of malignancy. 2. Recommend routine screening mammography in one year. BI-RADS Category 1: Negative Reviewed, dictated and finalized at location A. FORM INSPECTOR
--- NOTE | ~2021-04-05 | DEXA_ITS ---
Bone Density Report Name: KULDEEP PERERA Age: 66 Sex: Female Ethnicity: White Date of : 1955 Indication: postmenopausal; screening for osteoporosis; Referring Provider: FRANKIE, JULIETH Bagley Study: Bone densitometry was performed. Exam Date: April 05, 2021 Accession number: [id number] Bone Density: Region BMD T-score Z-score Classification AP Spine (L1-L4) 1.036 -0.1 1.9 Normal Femoral Neck (Left) 0.533 -2.8 -1.2 Osteoporosis Total Hip (Left) 0.804 -1.1 0.3 Osteopenia Femoral Neck (Right) 0.634 -1.9 -0.2 Osteopenia Total Hip (Right) 0.835 -0.9 0.5 Normal Total Hip Mean 0.820 -1.0 0.4 Normal World Health Organization criteria for BMD impression classify patients as: Normal (T-score at or above -1.0), Osteopenia (T-score between -1.0 and -2.5), or Osteoporosis (T-score at or below -2.5). 10-year Fracture Risk: FRAX not reported because: Some T-score for Spine Total or Hip Total or Femoral Neck at or below -2.5 Clinical Information Provided by Patient: Has used the following medications: Vitamin D Patient maximum height was 61.2 Menopause Age: 48 No regular weight bearing exercise Does not regularly consume dairy products Onset of menses at age 9 Number of children 2 Impression: The patient has osteoporosis, based on the Left Femoral Neck T-score. Discussion: INCREASED RISK OF FRACTURE. BONE DENSITY IS UNDESIRABLY LOW AT ONE OR MORE SKELETAL SITES, CONSISTENT WITH POSTMENOPAUSAL OSTEOPOROSIS. This patient's lowest T-score meets the World Health Organization's (WHO) criteria for osteoporosis at one or more sites (T-score -2.5 or below). In untreated patients, the risk of osteoporotic fracture increases approximately two-fold for each 1.0 SD decrease in T-score. Low bone density is not the only risk factor for fracture; also consider factors such as patient's age, frailty or poor health, risk of falling, risk of injury, previous osteoporotic fracture, family history of osteoporosis, cigarette smoking, low body weight, etc. Not everyone with low bone mineral density has osteoporosis; osteomalacia and other metabolic bone disorders should also be considered. Patients who have osteoporosis should be evaluated for specific diseases and conditions (secondary causes) that may cause or contribute to bone loss. The [place] Association of Clinical Endocrinologists (AACE) and National Osteoporosis Foundation (NOF) recommend pharmacologic intervention for all postmenopausal women whose T-score is in this range. The patient should follow a healthful lifestyle (good nutrition with adequate calcium and vitamin D, and appropriate weight-bearing exercise). Follow-Up: Consider a repeat BMD and Vertebral Fracture Assessment (VFA) exam in 2 years or sooner if medically necessary, to reassess this patient's status.
== END ==
PROVIDERS: PCP Internal Medicine; Visit Provider Internal Medicine
DX: Z12.31 Encounter for screening mammogram for malignant neoplasm of breast (principal); Z78.0 Asymptomatic menopausal state; M81.0 Age-related osteoporosis without current pathological fracture; M85.852 Other specified disorders of bone density and structure, left thigh; M85.851 Other specified disorders of bone density and structure, right thigh
CPT/HCPCS: 77063; 77067; 77080

== ENCOUNTER → 2023-06-13 11:28 | Outpatient (CLI) | payer MEDICARE, SELFPAY ==
--- NOTE | ~2023-06-13 | DEXA_ITS ---
Bone Density Report Name: KULDEEP PERERA Age: 68 Sex: Female Ethnicity: White Date of : 1955 Indication: osteopenia; monitoring treatment;postmenopausal Referring Provider: FRANKIE, JULIETH Bagley Study: Bone densitometry was performed. Exam Date: June 13, 2023 Accession number: [id number] Bone Density: Region BMD T-score Z-score Classification AP Spine (L1-L4) 1.027 -0.2 2.0 Normal Femoral Neck (Left) 0.566 -2.6 -0.7 Osteoporosis Total Hip (Left) 0.818 -1.0 0.5 Normal Femoral Neck (Right) 0.630 -2.0 -0.2 Osteopenia Total Hip (Right) 0.868 -0.6 0.9 Normal Total Hip Mean 0.843 -0.8 0.7 Normal World Health Organization criteria for BMD impression classify patients as: Normal (T-score at or above -1.0), Osteopenia (T-score between -1.0 and -2.5), or Osteoporosis (T-score at or below -2.5). 10-year Fracture Risk: FRAX not reported because: Some T-score for Spine Total or Hip Total or Femoral Neck at or below -2.5 Treated for osteoporosis Previous Exams: Region Exam Age BMD T-score BMD Change BMD Change Date g/cm2 vs Baseline vs Previous AP Spine(L1-L4) 06/13/2023 68 1.027 -0.2 -0.008 -0.008 04/05/2021 66 1.036 -0.1 Total Hip(Left) 06/13/2023 68 0.818 -1.0 0.014 0.014 04/05/2021 66 0.804 -1.1 Total Hip(Right) 06/13/2023 68 0.868 -0.6 0.033 0.033 04/05/2021 66 0.835 -0.9 *Denotes significance at 95% confidence level, LSC for AP Spine = 0.022 g/cm2, LSC for Total Hip = 0.027 g/cm2 Clinical Information Provided by Patient: Is being treated for osteoporosis Has used the following medications: Fosamax (i.e. alendronate), Vitamin D, Calcium Patient maximum height was 61.6 Menopause Age: 48 No regular weight bearing exercise Drinks caffeinated beverages Onset of menses at age 9 Number of children 2 Impression: The patient has osteoporosis, based on the Left Femoral Neck T-score. No significant bone loss was observed. Discussion: PATIENT UNDER TREATMENT WITH NO SIGNIFICANT BMD LOSS SINCE LAST EXAM. In an untreated patient, BMD typically declines with age. A lack of decline or gain is usually a sign that treatment is efficacious and fracture risk is reduced. It is important to ask patients whether they are taking their medications and to encourage continued and appropriate compliance with their osteoporosis therapies to reduce fracture risk. It is also important to review
--- NOTE | ~2023-06-13 | MM_ITS ---
EXAMINATION: MM screening patricia BI w briseyda HISTORY: Screening TECHNIQUE: Craniocaudal and mediolateral oblique 3-D tomosynthesis images were obtained and synthetic 2-D images were generated. CAD analysis was submitted and interpreted. COMPARISON: 04/05/2021 BREAST PARENCHYMAL COMPOSITION: There are scattered areas of fibroglandular density. FINDINGS: There is no evidence of suspicious mass, calcification, or architectural distortion to sugg est malignancy in either breast. There has been no suspicious interval change. IMPRESSION: 1. No mammographic evidence of malignancy. 2. Recommend routine screening mammography in one year. BI-RADS Category 1: Negative Reviewed, dictated and finalized at location A. TRIC CRANE OPERATOR
== END ==
PROVIDERS: PCP Internal Medicine; Visit Provider Internal Medicine
DX: Z12.31 Encounter for screening mammogram for malignant neoplasm of breast (principal); Z78.0 Asymptomatic menopausal state; M81.0 Age-related osteoporosis without current pathological fracture; M85.851 Other specified disorders of bone density and structure, right thigh
CPT/HCPCS: 77063; 77067; 77080